=== PATIENT | female | born 1940 | race Caucasian/White ===

== ENCOUNTER 2016-12-16 05:31 | Inpatient (IN) | payer MEDICARE ==
[~2016-12-16] VITALS: Ht 165.1 cm; Wt 72.0 kg
[2016-12-16 06:04] LABS: BASO % 0.7 % (0.1-1.2); EOS % 0.7 % (0.7-5.8); GRAN # 2.9 10_X3_uL (1.6-6.1); GRAN % 63.7 % (34.0-71.1); HEMOGLOBIN 12.3 g/dL (11.2-15.7); LYMPH % 21.8 % (19.3-51.7); MEAN CORPUSCULAR HEMOGLOBIN 25.5 pg (27.0-33.0); MEAN CORPUSCULAR HGB CONC 31.5 g/dL (32.0-36.0); MEAN CORPUSCULAR VOLUME 80.9 fL (79-95); MEAN PLATELET VOLUME 11.1 fl (7.5-11.5); MONO # 0.6 10_X3_uL (0.2-0.9); MONO % 13.1 % (4.7-12.5); PLATELET COUNT 162 x10_3/uL (182-369); RED BLOOD COUNT 4.82 x10_6/uL (3.9-5.2); RED CELL DISTRIBUTION WIDTH 18.3 % (11.7-14.4); WHITE BLOOD COUNT 4.5 x10_3/uL (4.0-10.0)
[2016-12-16 06:17] LABS: ALBUMIN 4.2 gm/dL (3.4-5.0); ALKALINE PHOSPHATASE 67 U/L (50-136); ALT/SGPT 10 U/L (3.5-33.9); AST/SGOT 19 U/L (7.04-26.96); BILIRUBIN,TOTAL 0.26 mg/dL (0.0-1.0); BLOOD UREA NITROGEN 14 mg/dL (7-18); CALCIUM 8.9 mg/dL (8.7-10.7); CARBON DIOXIDE 20 mmol/L (21-32); CREATINE KINASE 72 U/L (21-215); CREATININE 0.5 mg/dL (0.6-1.3); GLUCOSE,RANDOM 194 mg/dL (70-99); POTASSIUM 3.4 mmol/L (3.5-5.1); SODIUM 139 mmol/L (136-145); TOTAL PROTEIN 6.9 gm/dL (6.4-8.2)
[2016-12-16 14:25] LABS: CKMB 2.4 ng/ml (0.0-5.0)
[2016-12-16 14:28] LABS: TROP-I < 0.30 NG/ML (0.00-0.30)
[2016-12-16 22:02] LABS: CKMB 2.4 ng/ml (0.0-5.0)
[2016-12-16 22:04] LABS: TROP-I < 0.30 NG/ML (0.00-0.30)
[2016-12-17 05:56] LABS: BASO % 0.4 % (0.1-1.2); GRAN # 2.3 10_X3_uL (1.6-6.1); GRAN % 81.8 % (34.0-71.1); HEMATOCRIT 37.8 % (34-45); LYMPH # 0.4 10_X3_uL (1.2-3.7); LYMPH % 12.5 % (19.3-51.7); MEAN CORPUSCULAR HEMOGLOBIN 25.6 pg (27.0-33.0); MEAN CORPUSCULAR HGB CONC 31.7 g/dL (32.0-36.0); MEAN CORPUSCULAR VOLUME 80.8 fL (79-95); MEAN PLATELET VOLUME 11.3 fl (7.5-11.5); MONO # 0.2 10_X3_uL (0.2-0.9); MONO % 5.3 % (4.7-12.5); PLATELET COUNT 166 x10_3/uL (182-369); RED BLOOD COUNT 4.68 x10_6/uL (3.9-5.2); RED CELL DISTRIBUTION WIDTH 18.2 % (11.7-14.4); WHITE BLOOD COUNT 2.8 x10_3/uL (4.0-10.0)
[2016-12-17 06:05] LABS: URINE BILIRUBIN NEGATIVE (NEGATIVE); URINE BLOOD NEGATIVE (NEGATIVE); URINE KETONE NEGATIVE (NEGATIVE); URINE LEUKOCYTE ESTERASE NEGATIVE (NEGATIVE); URINE NITRATE NEGATIVE (NEGATIVE); URINE PROTEIN NEGATIVE (NEGATIVE); UROBILINOGEN NORMAL mg/dL (<1.0)
[2016-12-17 06:10] LABS: CKMB 3.1 ng/ml (0.0-5.0)
[2016-12-17 06:11] LABS: BLOOD UREA NITROGEN 11 mg/dL (7-18); CALCIUM 9.3 mg/dL (8.7-10.7); CARBON DIOXIDE 24 mmol/L (21-32); CREATININE 0.5 mg/dL (0.6-1.3); GLUCOSE,RANDOM 174 mg/dL (70-99); POTASSIUM 3.6 mmol/L (3.5-5.1); SODIUM 138 mmol/L (136-145)
[2016-12-17 06:13] LABS: TROP-I < 0.30 NG/ML (0.00-0.30)
[2016-12-17 06:16] LABS: URINE GLUCOSE (UA) 1000 mg/dL (NORMAL)
[2016-12-18 08:16] LABS: BASO % 0.2 % (0.1-1.2); GRAN # 5.2 10_X3_uL (1.6-6.1); GRAN % 81.3 % (34.0-71.1); HEMATOCRIT 42.1 % (34-45); HEMOGLOBIN 13.3 g/dL (11.2-15.7); LYMPH # 0.7 10_X3_uL (1.2-3.7); LYMPH % 10.7 % (19.3-51.7); MEAN CORPUSCULAR HEMOGLOBIN 25.4 pg (27.0-33.0); MEAN CORPUSCULAR HGB CONC 31.6 g/dL (32.0-36.0); MEAN CORPUSCULAR VOLUME 80.5 fL (79-95); MEAN PLATELET VOLUME 11.5 fl (7.5-11.5); MONO # 0.5 10_X3_uL (0.2-0.9); MONO % 7.8 % (4.7-12.5); PLATELET COUNT 206 x10_3/uL (182-369); RED BLOOD COUNT 5.23 x10_6/uL (3.9-5.2); RED CELL DISTRIBUTION WIDTH 18.5 % (11.7-14.4); WHITE BLOOD COUNT 6.4 x10_3/uL (4.0-10.0)
[2016-12-19 07:18] LABS: HEMATOCRIT 40.4 % (34-45); HEMOGLOBIN 13.1 g/dL (11.2-15.7); MEAN CORPUSCULAR HGB CONC 32.4 g/dL (32.0-36.0); MEAN CORPUSCULAR VOLUME 80.2 fL (79-95); MEAN PLATELET VOLUME 11.8 fl (7.5-11.5); RED BLOOD COUNT 5.04 x10_6/uL (3.9-5.2); RED CELL DISTRIBUTION WIDTH 18.7 % (11.7-14.4); WHITE BLOOD COUNT 5.3 x10_3/uL (4.0-10.0)
[2016-12-19 07:53] LABS: BLOOD UREA NITROGEN 14 mg/dL (7-18); CALCIUM 8.8 mg/dL (8.7-10.7); CARBON DIOXIDE 23 mmol/L (21-32); CREATININE 0.6 mg/dL (0.6-1.3); GLUCOSE,RANDOM 102 mg/dL (70-99); POTASSIUM 4.3 mmol/L (3.5-5.1); SODIUM 140 mmol/L (136-145)
[2016-12-19 09:43] LABS: ALBUMIN 3.8 gm/dL (3.4-5.0); ALKALINE PHOSPHATASE 54 U/L (50-136); ALT/SGPT 11 U/L (3.5-33.9); AST/SGOT 16 U/L (7.04-26.96)
[2016-12-19 09:45] LABS: BILIRUBIN,DIRECT < 0.20 mg/dL (0.0-0.30); BILIRUBIN,TOTAL < 0.15 mg/dL (0.0-1.0)
[2016-12-20 07:07] LABS: HEMATOCRIT 38.3 % (34-45); MEAN CORPUSCULAR HEMOGLOBIN 25.4 pg (27.0-33.0); MEAN CORPUSCULAR HGB CONC 31.3 g/dL (32.0-36.0); MEAN PLATELET VOLUME 10.7 fl (7.5-11.5); RED BLOOD COUNT 4.73 x10_6/uL (3.9-5.2); RED CELL DISTRIBUTION WIDTH 18.7 % (11.7-14.4); WHITE BLOOD COUNT 4.3 x10_3/uL (4.0-10.0)
[2016-12-20 07:26] LABS: BLOOD UREA NITROGEN 13 mg/dL (7-18); CALCIUM 8.9 mg/dL (8.7-10.7); CARBON DIOXIDE 27 mmol/L (21-32); CREATININE 0.7 mg/dL (0.6-1.3); GLUCOSE,RANDOM 153 mg/dL (70-99); POTASSIUM 4.3 mmol/L (3.5-5.1); SODIUM 141 mmol/L (136-145)
[2016-12-22 07:28] LABS: HEMATOCRIT 41.4 % (34-45); HEMOGLOBIN 12.9 g/dL (11.2-15.7); MEAN CORPUSCULAR HEMOGLOBIN 25.2 pg (27.0-33.0); MEAN CORPUSCULAR HGB CONC 31.2 g/dL (32.0-36.0); MEAN PLATELET VOLUME 11.1 fl (7.5-11.5); RED BLOOD COUNT 5.11 x10_6/uL (3.9-5.2); RED CELL DISTRIBUTION WIDTH 18.8 % (11.7-14.4); WHITE BLOOD COUNT 6.9 x10_3/uL (4.0-10.0)
[2016-12-22 07:49] LABS: BLOOD UREA NITROGEN 17 mg/dL (7-18); CALCIUM 8.7 mg/dL (8.7-10.7); CARBON DIOXIDE 25 mmol/L (21-32); CREATININE 0.7 mg/dL (0.6-1.3); GLUCOSE,RANDOM 176 mg/dL (70-99); POTASSIUM 3.9 mmol/L (3.5-5.1); SODIUM 141 mmol/L (136-145)
[2016-12-23 06:41] LABS: HEMATOCRIT 37.6 % (34-45); HEMOGLOBIN 11.7 g/dL (11.2-15.7); MEAN CORPUSCULAR HEMOGLOBIN 25.3 pg (27.0-33.0); MEAN CORPUSCULAR HGB CONC 31.1 g/dL (32.0-36.0); MEAN CORPUSCULAR VOLUME 81.4 fL (79-95); MEAN PLATELET VOLUME 11.1 fl (7.5-11.5); RED BLOOD COUNT 4.62 x10_6/uL (3.9-5.2); RED CELL DISTRIBUTION WIDTH 18.7 % (11.7-14.4); WHITE BLOOD COUNT 6.7 x10_3/uL (4.0-10.0)
[2016-12-23 07:01] LABS: BLOOD UREA NITROGEN 14 mg/dL (7-18); CALCIUM 8.6 mg/dL (8.7-10.7); CARBON DIOXIDE 26 mmol/L (21-32); CREATININE 0.6 mg/dL (0.6-1.3); GLUCOSE,RANDOM 150 mg/dL (70-99); POTASSIUM 4.2 mmol/L (3.5-5.1); SODIUM 142 mmol/L (136-145)
== END 2016-12-23 10:09 | disposition swing bed (61) | DRG 190 ==
LOC: ER 05:31 → MS 07:26
PROVIDERS: Internal Medicine; ADMIT Family Medicine
DX: J44.0 Chronic obstructive pulmonary disease with (acute) lower respiratory infection (principal); J18.9 Pneumonia, unspecified organism; J81.1 Chronic pulmonary edema; J44.1 Chronic obstructive pulmonary disease with (acute) exacerbation; I11.0 Hypertensive heart disease with heart failure; I50.9 Heart failure, unspecified; R06.00 Dyspnea, unspecified; I35.0 Nonrheumatic aortic (valve) stenosis; M25.512 Pain in left shoulder; D72.819 Decreased white blood cell count, unspecified; F41.9 Anxiety disorder, unspecified; F32.9 Major depressive disorder, single episode, unspecified; R01.1 Cardiac murmur, unspecified; G89.29 Other chronic pain; M54.9 Dorsalgia, unspecified; R51 Headache; R42 Dizziness and giddiness; R07.89 Other chest pain; R00.2 Palpitations; R50.9 Fever, unspecified; Z79.899 Other long term (current) drug therapy; Z79.891 Long term (current) use of opiate analgesic; Z90.710 Acquired absence of both cervix and uterus; F17.210 Nicotine dependence, cigarettes, uncomplicated; Z82.49 Family history of ischemic heart disease and other diseases of the circulatory system
CPT/HCPCS: 36415; 71010; 71020; 71250; 73030; 80048; 80053; 80061; 80076; 80198; 81003; 82550; 82553; 82607; 82962; 83036; 83605; 83735; 83880; 85025; 85379; 86738; 87040; 87070; 87205; 87449; 93005; 93041; 93306; 94640; 94664; 96365; 99070; 99284; 99284-25; G0378; J2930; J7040

== ENCOUNTER 2016-12-16 05:31 | Observation (INO) | payer MEDICARE | END 2016-12-18 10:04 | disposition other institution (70) | LOC: ER 05:31 → MS 07:26 | PROVIDERS: ADMIT Family Medicine | DX: J44.1 Chronic obstructive pulmonary disease with (acute) exacerbation (principal); R06.00 Dyspnea, unspecified; I35.0 Nonrheumatic aortic (valve) stenosis; M25.512 Pain in left shoulder; D72.829 Elevated white blood cell count, unspecified; F41.9 Anxiety disorder, unspecified; F32.9 Major depressive disorder, single episode, unspecified; J81.1 Chronic pulmonary edema; R01.1 Cardiac murmur, unspecified; G89.29 Other chronic pain; M54.9 Dorsalgia, unspecified; R51 Headache; R42 Dizziness and giddiness; I10 Essential (primary) hypertension; R07.89 Other chest pain; R00.2 Palpitations; R50.9 Fever, unspecified; Z79.899 Other long term (current) drug therapy; Z79.891 Long term (current) use of opiate analgesic; Z90.710 Acquired absence of both cervix and uterus; F17.210 Nicotine dependence, cigarettes, uncomplicated; Z82.49 Family history of ischemic heart disease and other diseases of the circulatory system | CPT/HCPCS: 36415; 71010; 80048; 80053; 80198; 81003; 82550; 82553; 83605; 83735; 83880; 85025; 85379; 86738; 87040; 87205; 87449; 93005; 93041; 93306; 94640; 94664; 96365; 99070; 99284; 99284-25; G0378; J2930; J7040 ==

== ENCOUNTER 2016-12-23 10:37 | Inpatient (IN) | payer MEDICARE ==
[~2016-12-23] VITALS: Ht 165.1 cm; Wt 74.0 kg
[2016-12-26 10:30] LABS: CKMB 2.7 ng/ml (0.0-5.0)
[2016-12-26 10:32] LABS: TROP-I < 0.30 NG/ML (0.00-0.30)
[2016-12-27 06:49] LABS: HEMATOCRIT 35.2 % (34-45); HEMOGLOBIN 11.1 g/dL (11.2-15.7); MEAN CORPUSCULAR HEMOGLOBIN 25.5 pg (27.0-33.0); MEAN CORPUSCULAR HGB CONC 31.5 g/dL (32.0-36.0); MEAN CORPUSCULAR VOLUME 80.9 fL (79-95); MEAN PLATELET VOLUME 10.8 fl (7.5-11.5); RED BLOOD COUNT 4.35 x10_6/uL (3.9-5.2); RED CELL DISTRIBUTION WIDTH 18.6 % (11.7-14.4); WHITE BLOOD COUNT 7.4 x10_3/uL (4.0-10.0)
[2016-12-27 07:21] LABS: BLOOD UREA NITROGEN 18 mg/dL (7-18); CALCIUM 8.2 mg/dL (8.7-10.7); CARBON DIOXIDE 26 mmol/L (21-32); CREATININE 0.6 mg/dL (0.6-1.3); GLUCOSE,RANDOM 151 mg/dL (70-99); POTASSIUM 4.1 mmol/L (3.5-5.1); SODIUM 142 mmol/L (136-145)
[2016-12-28 19:22] LABS: CKMB 3.8 ng/ml (0.0-5.0)
[2016-12-28 19:27] LABS: TROP-I < 0.30 NG/ML (0.00-0.30)
[2016-12-30 07:14] LABS: BLOOD UREA NITROGEN 16 mg/dL (7-18); CALCIUM 8.3 mg/dL (8.7-10.7); CARBON DIOXIDE 26 mmol/L (21-32); CREATININE 0.5 mg/dL (0.6-1.3); GLUCOSE,RANDOM 200 mg/dL (70-99); POTASSIUM 3.9 mmol/L (3.5-5.1); SODIUM 141 mmol/L (136-145)
[2016-12-30 07:20] LABS: HEMATOCRIT 34.2 % (34-45); HEMOGLOBIN 10.6 g/dL (11.2-15.7); MEAN CORPUSCULAR HEMOGLOBIN 25.3 pg (27.0-33.0); MEAN CORPUSCULAR VOLUME 81.6 fL (79-95); MEAN PLATELET VOLUME 10.2 fl (7.5-11.5); RED BLOOD COUNT 4.19 x10_6/uL (3.9-5.2); RED CELL DISTRIBUTION WIDTH 18.7 % (11.7-14.4)
== END 2017-01-01 10:30 | disposition home or self-care (01) | DRG 191 ==
LOC: SWING 10:37
PROVIDERS: Family Medicine; ADMIT Family Medicine
DX: J44.0 Chronic obstructive pulmonary disease with (acute) lower respiratory infection (principal); J90 Pleural effusion, not elsewhere classified; J20.9 Acute bronchitis, unspecified; J44.1 Chronic obstructive pulmonary disease with (acute) exacerbation; Z79.2 Long term (current) use of antibiotics; I10 Essential (primary) hypertension; F17.210 Nicotine dependence, cigarettes, uncomplicated; Z90.710 Acquired absence of both cervix and uterus; R42 Dizziness and giddiness; R51 Headache; Z83.3 Family history of diabetes mellitus; Z82.49 Family history of ischemic heart disease and other diseases of the circulatory system; M62.50 Muscle wasting and atrophy, not elsewhere classified, unspecified site; D64.9 Anemia, unspecified; Z79.899 Other long term (current) drug therapy; Z79.891 Long term (current) use of opiate analgesic; R06.02 Shortness of breath; R49.0 Dysphonia; Z85.21 Personal history of malignant neoplasm of larynx
CPT/HCPCS: 36415; 70450; 70490; 71020; 71250; 80048; 82550; 82553; 82962; 93005; 94640; 99070; J2930